=== PATIENT | male | born 1975 | race Caucasian/White ===

== ENCOUNTER 2016-08-21 09:10 | Emergency (ER) | payer MEDICAID ==
[~2016-08-21] VITALS: Ht 172.7 cm; Wt 100.1 kg
[2016-08-21] MEDS ORDERED: ONDANSETRON ODT 4 MG PO ONE (09:30)
[2016-08-21] MEDS ORDERED: ONDANSETRON ODT 4 MG ONE (09:47)
[2016-08-21 09:52] VITALS: BP 127/88
== END 2016-08-21 10:10 | disposition home or self-care (01) ==
LOC: ED 10:03
DX: K02.9 Dental caries, unspecified (principal); F17.210 Nicotine dependence, cigarettes, uncomplicated
CPT/HCPCS: 99283; Q0162

== ENCOUNTER 2016-10-04 09:57 | Emergency (ER) | payer MEDICAID ==
[~2016-10-04] VITALS: Ht 172.7 cm; Wt 98.0 kg
[2016-10-04 10:01] VITALS: BP 132/84
[2016-10-04] MEDS ORDERED: SODIUM CHLORIDE 0.9% 1,000 ML IV ONE (10:23)
[2016-10-04] MEDS ORDERED: ONDANSETRON 2MG/ML, 2ML ONE (10:26)
[2016-10-04] MEDS ORDERED: HYDROmorphone 1 MG/ML, 1ML ONE (10:26)
[2016-10-04] MEDS ORDERED: SODIUM CHLORIDE FLUSH 10ML SYR IVF ONE (10:30)
[2016-10-04] MEDS ORDERED: SODIUM CHLORIDE 0.9% 1,000ML IVBOLUS ONE (10:30)
[2016-10-04] MEDS ORDERED: HYDROmorphone 1 MG/ML, 1ML IVPush PRN (10:30)
[2016-10-04] MEDS ORDERED: ONDANSETRON 2MG/ML, 2ML IVPush ONE (10:30)
[2016-10-04 11:09] LABS: ASPARTATE AMINO TRANSFERASE 16 U/L (15-37); BLOOD UREA NITROGEN 13 mg/dL (7-18)
== END 2016-10-04 13:27 | disposition home or self-care (01) ==
LOC: ED 11:33
DX: R10.31 Right lower quadrant pain (principal); R10.33 Periumbilical pain; I10 Essential (primary) hypertension; Z87.891 Personal history of nicotine dependence
CPT/HCPCS: 36415; 74176; 80053; 81003; 83690; 85025; 96361; 96374; 96375; 99285; J1170; J2405; J7030

== ENCOUNTER 2017-05-02 09:26 | Emergency (ER) | payer MEDICAID ==
[~2017-05-02] VITALS: Ht 172.7 cm; Wt 101.7 kg
[2017-05-02 09:37] VITALS: BP 127/82
== END 2017-05-02 12:47 | disposition home or self-care (01) ==
LOC: ED 12:16
DX: J11.1 Influenza due to unidentified influenza virus with other respiratory manifestations (principal)
CPT/HCPCS: 99281

== ENCOUNTER 2017-11-06 16:00 | Emergency (ER) | payer MEDICAID, OTHER ==
[~2017-11-06] VITALS: Ht 172.7 cm; Wt 86.0 kg
[2017-11-06 16:10] VITALS: BP 142/96
== END 2017-11-06 16:32 | disposition home or self-care (01) ==
LOC: ED 16:26
DX: K02.9 Dental caries, unspecified (principal); I10 Essential (primary) hypertension; F17.210 Nicotine dependence, cigarettes, uncomplicated
CPT/HCPCS: 99283